=== PATIENT | male | born 1995 | race Caucasian/White ===

== ENCOUNTER 2017-01-12 13:12 | Emergency (ER) | payer BC ==
[~2017-01-12] VITALS: Ht 182.9 cm; Wt 63.2 kg
[~2017-01-12 13:12] MED LIST: AMOXICILLIN500 MG PO; AMOXICILLIN875 MG PO; AUGMENTIN875TAB PO; CLARITIN10 M1 PO; MEDDOSEPAK PO; MIRACLEMM PO; NAPROSYN250 MG PO; TESSALON200 MG PO
[2017-01-12 14:23] VITALS: BP 131/78
== END 2017-01-12 14:23 | disposition home or self-care (01) | DRG 605 ==
LOC: ED 13:12
PROC: 0HQEXZZ Repair Left Lower Arm Skin, External Approach (ICD-10-PCS; principal; 2017-01-12)
DX: S51.812A Laceration without foreign body of left forearm, initial encounter (principal); F17.210 Nicotine dependence, cigarettes, uncomplicated; S51.811A Laceration without foreign body of right forearm, initial encounter; W22.8XXA Striking against or struck by other objects, initial encounter

== ENCOUNTER 2017-01-21 11:57 | Emergency (ER) | payer BC ==
[~2017-01-21] VITALS: Ht 182.9 cm; Wt 90.0 kg
[2017-01-21 12:43] VITALS: BP 105/64
== END 2017-01-21 12:42 | disposition home or self-care (01) | DRG 950 ==
LOC: ED 11:57
DX: S51.812D Laceration without foreign body of left forearm, subsequent encounter (principal); Z48.02 Encounter for removal of sutures

== ENCOUNTER 2019-08-17 | Emergency (ER) | payer OTHER ==
[2019-08-17 11:54] LABS: URINE BILIRUBIN - DIPSTICK NEGATIVE (NEGATIVE); URINE BLOOD DIPSTICK NEGATIVE (NEGATIVE); URINE COLOR YELLOW; URINE GLUCOSE - DIPSTICK NEGATIVE (NEGATIVE); URINE KETONE NEGATIVE (NEGATIVE); URINE LEUK ESTERASE NEGATIVE (NEGATIVE); URINE NITRITE - DIPSTICK NEGATIVE (Negative); URINE PROTEIN - DIPSTICK NEGATIVE (NEG-TRACE); URINE UROBILINOGEN - DIPSTICK 0.2 E.U./dL (0.2)
== END 2019-08-17 12:10 | disposition home or self-care (01) | DRG 728 ==
PROVIDERS: Family Medicine
DX: A64 Unspecified sexually transmitted disease (principal); F17.200 Nicotine dependence, unspecified, uncomplicated